=== PATIENT | female | born 1985 | race Caucasian/White ===

== ENCOUNTER 2018-04-29 14:52 | Emergency (ER) | END 2018-04-29 17:50 | disposition left against medical advice (07) ==

== ENCOUNTER 2018-12-24 12:56 | Emergency (ER) | payer SELFPAY ==
[~2018-12-24] VITALS: Wt 79.5 kg
[2018-12-24] MEDS ORDERED: SOD CHLORIDE 0.9% 500 ML IV STA (13:20)
[2018-12-24] MEDS ORDERED: ONDANSETRON 4 MG INJ IV STA (13:20)
--- NOTE | 2018-12-24 13:24 | ERD ---
ER Documentation Chief Complaint Chief Complaint c/o N/V, headache, facial pain x1 week. Hx: Vertigo HPI 33-year-old female, employee at [employer] and medical records presents to the emergency department, complaining of 1 week with persistent nausea, vomiting, headache and dizziness. The patient was seen by her primary doctor and diagno sed with positional vertigo. She denies fever, no chills. No distal weakness, numbness or tingling. ROS All systems reviewed and are negative except as per history of present illness. Medications Home Meds Active Scripts Lorazepam* (Ativan*) 0.5 Mg Tablet, 0.5 MG PO Q8 PRN for dizziness, #10 TAB Prov:PAUL JEFF MD 12/24/18 Ondansetron Hcl* (Zofran*) 4 Mg Tablet, 4 MG PO Q8H PRN for NAUSEA AND/OR VOMITING, #20 TAB Prov:PAUL JEFF MD 12/24/18 Meclizine Hcl* (Antivert*) 12.5 Mg Tab, 12.5 MG PO Q6H PRN for DIZZINESS, #20 TAB Prov:PAUL JEFF MD 12/24/18 Allergies Allergies: Coded Allergies: No Known Allergy (Unverified , 12/24/18) PMhx/Soc Medical and Surgical Hx: pt denies Medical Hx, pt denies Surgical Hx FmHx Family History: No diabetes Physical Exam Vitals Vital Signs Date Temp Pulse Resp B/P (MAP) Pulse Ox O2 O2 Flow FiO2 Time Delivery Rate 12/24/18 77 18 132/72 100 Room Air 15:23 (92) 12/24/18 98.0 91 20 160/95 100 13:00 (116) Physical Exam Patient is in mild distress due to dizziness, vital signs stable. Alert and fully oriented. HEENT: PERRLA, EOMI, Sclera and conjunctiva appear normal, Canals clear, tympanic membranes WNL. THROAT: Normal oropharynx. NECK: Supple, No lymphadenopathy. Full ROM without pain or tenderness. HEART: RRR, no rubs, murmurs, clicks or gallops. LUNGS: Clear to auscultation. ABDOMEN: Soft, non-tender without masses or hepatosplenomegaly. EXTREMITIES: No edema bilaterally. BACK: Full ROM, no deformity, normal back exam NEURO: Cranial nerves grossly intact, no motor or sensory deficit. Mild horizontal nystagmus while the patient was looking straight ahead with mildly abnormal head impulse test. Result Diagram: 12/24/18 1335 12/24/18 1335 Results 24 hrs Laboratory Tests Test 12/24/18 13:35 12/24/18 13:42 12/24/18 13:46 12/24/18 14:00 White Blood Count 9.4 10^3/ul Red Blood Count 4.86 10^6/ul Hemoglobin 11.4 g/dl Hematocrit 37.0 % Mean Corpuscular 76.1 fl Volume Mean Corpuscular 23.5 pg Hemoglobin Mean Corpuscular 30.8 g/dl Hemoglobin Concent Red Cell 14.7 % Distribution Width Platelet Count 283 10^3/UL Mean Platelet 11.6 fl Volume Immature 0.300 % Granulocytes % Neutrophils % 68.5 % Lymphocytes % 23.1 % Monocytes % 5.4 % Eosinophils % 2.2 % Basophils % 0.5 % Nucleated Red Blood 0.0 /100WBC Cells % Immature 0.030 10^3/ul Granulocytes # Neutrophils # 6.4 10^3/ul Lymphocytes # 2.2 10^3/ul Monocytes # 0.5 10^3/ul Eosinophils # 0.2 10^3/ul Basophils # 0.1 10^3/ul Nucleated Red Blood 0.0 10^3/ul Cells # Sodium Level 139 mmol/L Potassium Level 3.7 mmol/L Chloride Level 106 mmol/L Carbon Dioxide 24 mmol/L Level Anion Gap 9 Blood Urea Nitrogen 14 mg/dl Creatinine 0.84 mg/dl Est Glomerular > 60 mL/min Filtrat Rate mL/min Glucose Level 100 mg/dl Calcium Level 9.5 mg/dl Bedside Urine pH 7.0 (LAB) Bedside Urine Negative Protein (LAB) Bedside Urine Negative Glucose (UA) Bedside Urine Negative Ketones (LAB) Bedside Urine Blood 2+ Bedside Urine Negative Nitrite (LAB) Bedside Urine Negative Leukocyte Esterase (L Bedside Glucose 77 mg/dL POC Beta HCG, NEGATIVE Qualitative Current Medications Medications Dose Sig/Mechelle Start Time Status Last (Trade) Ordered Route PRN Stop Time Admin Dose Reason Admin Sodium 500 ml @ Q1H STAT 12/24/18 DC 12/24/18 Chloride 500 mls/hr IV 13:20 14:13 12/24/18 14:19 Ondansetron 4 mg ONCE STAT 12/24/18 DC 12/24/18 HCl (Zofran IV 13:20 14:13 Inj) 12/24/18 13:54 Lorazepam 0.5 mg ONCE ONCE 12/24/18 DC 12/24/18 (Ativan) IV 13:30 14:13 12/24/18 13:54 Meclizine 25 mg ONCE ONCE 12/24/18 DC 12/24/18 HCl PO 13:30 14:13 (Antivert) 12/24/18 13:54 Ketorolac 15 mg ONCE STAT 12/24/18 DC 12/24/18 Tromethamine IV 14:58 15:04 (Toradol) 12/24/18 14:59 Patient: LEE ART : 1985 Age: 33 Sex: F MR #: [id number] DOS: 12/24/18 1320 Ordering MD: PAUL JEFF MD Location: [facility] Room/Bed: PROCEDURE: CT Brain without contrast. CLINICAL INDICATION: Dizziness. TECHNIQUE: A CT of the brain without contrast was performed utilizing axial sections from the skull base through the vertex. One or more the following does reduction techniques were utilized: Automated exposure control, adjustment of the mA/ or kV according to patient's size, or use of iterative reconstruction technique. Total exam CTDIvol is 42 MGy and DLP is 688 mGy-cm. DICOM images are available. COMPARISON: None. FINDINGS: The ventricles and sulci are age-appropriate. Partially empty sella turcica is noted. There is no intracranial hemorrhage, mass effect or midline shift. No abnormal intra-axial or extra-axial fluid collections are seen. The malone/white matter differentiation is well preserved. No acute skull abnormality is noted. The visualized paranasal sinuses are essentially clear. IMPRESSION: 1. No acute intracranial hemorrhage, transcortical infarction or mass effect. 2. Partially empty sella turcica. RPTAT: UU .Glenn Sharpe MD, Date Time Electronically viewed and signed by .Glenn Sharpe MD, MD on 12/24/2018 14:47 Procedures/MDM Vital signs stable, neurovascular exam revealed horizontal nystagmus while the patient was looking straight ahead with mildly abnormal head impulse test. Differential diagnosis include but not limited to dehydration, cardiac arrhythmia, , Mnire's disease, vestibular neuronitis, migraine, vertigo, side effects of the medications, hypoglycemia. Less likely but is still a possibility, intracranial hemorrhage, ischemic stroke, [employer] neoplasm. Pertinent Data: 12 Lead ECG: Sinus rhythm, no ST changes, normal T wave, normal intervals Labs: CBC: normal, BMP: normal kidney function, normal electrolytes. Glucose: normal Urine : Negative. CT head: Normal Physical examination and clinical presentation consistent most likely with positional vertigo During the ED course the patient remained stable, no new complaints. Results and clinical impression discussed with patient who agrees with management. The patient is stable to be treated outpatient and will be discharged home with instructions to follow up with the primary care provider in the next 48h. If symptoms persist, worsen or new symptoms develop, then patient should return to the ED immediately. Instructions explained and given directly by me to the patient with acknowledgment and demonstrated understanding. Disclaimer: Inadvertent spelling and grammatical errors are likely due to EHR/dictation software use and do not reflect on the overall quality of patient care. Also, please note that the electronic time recorded on this note does not necessarily reflect the actual time of the patient encounter. Departure Diagnosis: Primary Impression: Dizziness Additional Impression: Vertigo Condition: Stable Additional Instructions: Thank you very much for allowing us to participate in your care. Your health and safety is our top priority at [facility]. The evaluation in the emergency department has been done to rule out an acute emergency, therefore, chronic conditions like malignancy or other diseases have not been evaluated; therefore, you need to follow up with a primary care provider in the next 48h. If symptoms persist, worsen or new symptoms develop, then patient should return to the ED immediately. Call your primary care doctor TOMORROW for an appointment during the next 2-4 days and bring all the information provided. Have prescriptions filled and follow precisely the directions on the label. If the symptoms get worse and your provider is unavailable, return to the Emergency Department immediately. PAUL JEFF MD Dec 24, 2018 13:24
[2018-12-24] MEDS ORDERED: MECLIZINE 12.5 MG TAB PO ONE (13:30)
[2018-12-24] MEDS ORDERED: LORAZEPAM 2 MG INJ IV ONE (13:30)
[2018-12-24] MEDS ORDERED: KETOROLAC 15 MG INJ IV STA (14:58)
[2018-12-24] MEDS ORDERED: MECL12.574 PO (15:00)
[2018-12-24] MEDS ORDERED: ONDA4TAB8 PO (15:00)
[2018-12-24] MEDS ORDERED: LORA-441 PO (15:00)
[2018-12-24 15:23] VITALS: BP 132/72; PULSE 77; RESP 18
== END 2018-12-24 15:24 | disposition home or self-care (01) ==
LOC: FTE 12:56
DX: R42 Dizziness and giddiness (principal); R11.2 Nausea with vomiting, unspecified
CPT/HCPCS: 70450; 80048; 81003; 81025; 82962; 85025; 93005; 96361; 96374; 96375; 99285; J1885; J2060; J2405; J7040

== ENCOUNTER → 2019-03-11 | Outpatient (CLI) | payer OTHER ==
[~2019-03-11] MED LIST: LORA-441 PO; MECL12.574 PO; ONDA4TAB14 PO; ONDA4TAB8 PO
== END | disposition home or self-care (01) ==
LOC: LAB 09:37
PROVIDERS: ATTEND Internal Medicine
DX: Z00.00 Encounter for general adult medical examination without abnormal findings (principal)
CPT/HCPCS: 80053; 80061; 81001; 82306; 84443; 85025

== ENCOUNTER → 2019-03-11 | Outpatient (CLI) | payer OTHER | END | disposition home or self-care (01) | LOC: LAB 14:33 | PROVIDERS: ATTEND Allergy & Immunology | DX: Z91.013 Allergy to seafood (principal) ==

== ENCOUNTER → 2019-03-17 | Outpatient (CLI) | payer OTHER | END | disposition home or self-care (01) | LOC: LAB 12:25 | PROVIDERS: ATTEND Internal Medicine | DX: R31.29 Other microscopic hematuria (principal) | CPT/HCPCS: 81001; 82607; 82728; 82746; 83540; 85025 ==